=== PATIENT | female | born 1930 | race Caucasian/White ===

== ENCOUNTER 2017-01-06 22:27 | Inpatient (IN) | payer MEDICARE, BC ==
[~2017-01-06] VITALS: Ht 157.5 cm; Wt 76.3 kg
[~2017-01-06 22:27] MED LIST: ASPIR 8181 M1 PO; ATORVASTATIN CA10 M1 PO; CALCIUM 600 +1 EA15 PO; CHROMIUM PICO200 MC1 PO; CO Q-10100 M2 PO; FISH OIL 11000 MG/CA PO; FLAXSEED; GEMFIBROZIL600 M2 PO; GLUCOPHAGE850 M1 PO; GLUCOSAMINE CH PO; LOSARTAN POTAS100 M1 PO; MAGNESIUM250 M2 PO; METOPROLOL SUCC25 M1 PO; OSTEO BI-FLEX1 EAC5 PO; SUPER B COMPLE150 M1; TOPROL XL100 M1 PO; TYLENOL325 M2 PO; VITAMIN B-6100 M1 PO; VITAMIN D-32000 UNI4 PO
[2017-01-06 22:54] LABS: BASO % 0.4 % (0-2); CARBON DIOXIDE-VENOUS 29 mmol/L (21-33); CREATININE 1.16 mg/dl (0.50-1.10); EOS % 2.2 % (0-7); EOSINOPHIL ABSOLUTE COUNT 0.2 tho/cmm (0.0-0.7); GLUCOSE 203 mg/dl (65-120); HCT-HEMATOCRIT 41.1 % (34.0-49.0); HGB-HEMOGLOBIN 13.7 gm/dl (12.0-15.5); IMMATURE GRANULOCYTES ABSOLUTE 0.03 tho/cmm (0-0.03); IMMATURE GRANULOCYTES PERCENT 0.3 % (0-0.3); LYMPH % 17.6 % (20-45); LYMPH ABSOLUTE COUNT 1.6 tho/cmm (0.8-4.5); MCH (MEAN CORPUSCULAR HGB) 30.4 pg (28.0-32.0); MCHC MEAN CORPUSCULAR HGB CONC 33.3 % (32.0-36.0); MCV (MEAN CELL VOLUME) 91.1 fl (82.0-96.0); MEAN PLATELET VOLUME 10.3 cmc (9.4-12.4); MONO % 6.9 % (0-12); MONOCYTE ABSOLUTE COUNT 0.6 tho/cmm (0.0-1.2); NEUTROPHIL ABSOLUTE COUNT 6.6 tho/cmm (1.6-8.0); NEUTROPHIL-AUTOMATED 6.6 tho/cmm (1.6-8.0); NEUTROPHILS % 72.6 % (40-80); PLATELET COUNT 164 tho/cmm (150-450); POTASSIUM 4.3 mmol/L (3.7-5.1); RED BLOOD COUNT 4.51 mil/cmm (4.00-5.20); RED CELL DISTRIBUTION WIDTH 14.1 % (12.4-16.4); SODIUM 141 mmol/L (135-146); eGFR VALUE FOR BLACK 50 mL/Min
[2017-01-06 23:01] LABS: PROTHROMBIN TIME 11.3 SECONDS (9.0-13.6)
[2017-01-06 23:14] LABS: ALBUMIN 3.7 g/dl (3.5-5.0); ALKALINE PHOSPHATASE 72 U/L (33-138); ALT/SGPT 22 U/L (12-78); AST/SGOT 14 U/L (10-40); BILIRUBIN,TOTAL 0.4 mg/dl (0-1.5); BLOOD UREA NITROGEN 17 mg/dl (6-24); CALCIUM 9.6 mg/dl (8.5-10.5); CHLORIDE 104 mmol/l (96-110)
[2017-01-06 23:15] LABS: ANION GAP 10 mmol/L (0-20)
[2017-01-06 23:16] LABS: ESR-ERYTHROCYTE SED RATE 9 mm/hr (0-30)
[2017-01-07 01:38] LABS: URINE BILIRUBIN NEGATIVE (NEG); URINE BLOOD NEGATIVE (NEG); URINE GLUCOSE (UA) NEGATIVE (NEG); URINE KETONE NEGATIVE (NEG); URINE LEUKOCYTE ESTERASE POSITIVE (NEG); URINE NITRITE POSITIVE (NEG); URINE PROTEIN MODERATE (NEG); URINE SPECIFIC GRAVITY 1.015 (1.003-1.030)
[2017-01-07 01:39] LABS: URINE APPEARANCE HAZY; URINE COLOR YELLOW
[2017-01-07 01:45] LABS: URINE BACTERIA 4+; URINE EPITHELIAL CELLS 0-1 /[HPF] (0-10); URINE RBC 0 /[HPF] (0-5)
[2017-01-07 05:51] LABS: BASO % 0.5 % (0-2); EOS % 1.8 % (0-7); EOSINOPHIL ABSOLUTE COUNT 0.2 tho/cmm (0.0-0.7); HCT-HEMATOCRIT 37.4 % (34.0-49.0); HGB-HEMOGLOBIN 12.2 gm/dl (12.0-15.5); IMMATURE GRANULOCYTES ABSOLUTE 0.03 tho/cmm (0-0.03); IMMATURE GRANULOCYTES PERCENT 0.4 % (0-0.3); LYMPH % 17.4 % (20-45); LYMPH ABSOLUTE COUNT 1.5 tho/cmm (0.8-4.5); MCH (MEAN CORPUSCULAR HGB) 29.6 pg (28.0-32.0); MCHC MEAN CORPUSCULAR HGB CONC 32.6 % (32.0-36.0); MCV (MEAN CELL VOLUME) 90.8 fl (82.0-96.0); MEAN PLATELET VOLUME 10.1 cmc (9.4-12.4); MONO % 6.5 % (0-12); MONOCYTE ABSOLUTE COUNT 0.5 tho/cmm (0.0-1.2); NEUTROPHIL ABSOLUTE COUNT 6.1 tho/cmm (1.6-8.0); NEUTROPHIL-AUTOMATED 6.1 tho/cmm (1.6-8.0); NEUTROPHILS % 73.4 % (40-80); PLATELET COUNT 136 tho/cmm (150-450); RED BLOOD COUNT 4.12 mil/cmm (4.00-5.20); RED CELL DISTRIBUTION WIDTH 14.1 % (12.4-16.4); WHITE BLOOD COUNT 8.3 tho/cmm (4.0-10.0)
[2017-01-07 06:03] LABS: ALB/GLOB RATIO 1.1 (0.8-2.0); ALBUMIN 3.2 g/dl (3.5-5.0); ALKALINE PHOSPHATASE 57 U/L (33-138); ALT/SGPT 22 U/L (12-78); ANION GAP 13 mmol/L (0-20); AST/SGOT 15 U/L (10-40); BILIRUBIN,TOTAL 0.5 mg/dl (0-1.5); BLOOD UREA NITROGEN 15 mg/dl (6-24); CALCIUM 9.6 mg/dl (8.5-10.5); CARBON DIOXIDE-VENOUS 30 mmol/L (22-32); CHLORIDE 106 mmol/l (96-110); CHOLESTEROL 154 mg/dl (120-200); CREATININE 1.13 mg/dl (0.50-1.10); GLUCOSE 136 mg/dL (70-110); HDL CHOLESTEROL 53 mg/dl (40-60); LDL CHOLESTEROL 74 mg/dl (0-99); MAGNESIUM 1.9 mg/dl (1.8-2.6); PHOSPHOROUS 3.9 mg/dl (2.5-4.9); POTASSIUM 4.5 mmol/L (3.7-5.1); SODIUM 144 mmol/L (135-145); TRIGLYCERIDES 136 mg/dl (<149); VLDL 27 mg/dl (0-30); eGFR VALUE FOR BLACK 52 mL/Min
[2017-01-08 06:05] LABS: BASO % 0.2 % (0-2); EOS % 1.8 % (0-7); EOSINOPHIL ABSOLUTE COUNT 0.2 tho/cmm (0.0-0.7); HCT-HEMATOCRIT 38.3 % (34.0-49.0); HGB-HEMOGLOBIN 12.6 gm/dl (12.0-15.5); IMMATURE GRANULOCYTES ABSOLUTE 0.03 tho/cmm (0-0.03); IMMATURE GRANULOCYTES PERCENT 0.4 % (0-0.3); LYMPH % 19.1 % (20-45); LYMPH ABSOLUTE COUNT 1.6 tho/cmm (0.8-4.5); MCH (MEAN CORPUSCULAR HGB) 29.8 pg (28.0-32.0); MCHC MEAN CORPUSCULAR HGB CONC 32.9 % (32.0-36.0); MCV (MEAN CELL VOLUME) 90.5 fl (82.0-96.0); MEAN PLATELET VOLUME 10.2 cmc (9.4-12.4); MONO % 8.2 % (0-12); MONOCYTE ABSOLUTE COUNT 0.7 tho/cmm (0.0-1.2); NEUTROPHIL ABSOLUTE COUNT 5.9 tho/cmm (1.6-8.0); NEUTROPHIL-AUTOMATED 5.9 tho/cmm (1.6-8.0); NEUTROPHILS % 70.3 % (40-80); PLATELET COUNT 143 tho/cmm (150-450); RED BLOOD COUNT 4.23 mil/cmm (4.00-5.20); WHITE BLOOD COUNT 8.4 tho/cmm (4.0-10.0)
[2017-01-08 06:14] LABS: ANION GAP 8 mmol/L (0-20); BLOOD UREA NITROGEN 11 mg/dl (6-24); CALCIUM 8.3 mg/dl (8.5-10.5); CARBON DIOXIDE-VENOUS 30 mmol/L (22-32); CHLORIDE 104 mmol/l (96-110); CREATININE 1.23 mg/dl (0.50-1.10); GLUCOSE 144 mg/dL (70-110); SODIUM 138 mmol/L (135-145); eGFR VALUE FOR BLACK 47 mL/Min
[2017-01-08 06:17] LABS: POTASSIUM 4.1 mmol/L (3.7-5.1)
[2017-01-10 04:10] LABS: ANION GAP 9 mmol/L (0-20); BLOOD UREA NITROGEN 16 mg/dl (6-24); CALCIUM 8.8 mg/dl (8.5-10.5); CARBON DIOXIDE-VENOUS 29 mmol/L (22-32); CHLORIDE 102 mmol/l (96-110); CREATININE 1.05 mg/dl (0.50-1.10); GLUCOSE 155 mg/dL (70-110); SODIUM 136 mmol/L (135-145); eGFR VALUE FOR BLACK 56 mL/Min
[2017-01-10 04:11] LABS: POTASSIUM 4.1 mmol/L (3.7-5.1)
[2017-01-11] MEDS ORDERED: NORVASC10 M2 PO (10:32)
[2017-01-11] MEDS ORDERED: ASPIRIN EC81 MG PO (10:33)
[2017-01-11] MEDS ORDERED: TYLENOL325 M2 PO (10:33)
[2017-01-11] MEDS ORDERED: COLACE100 M1 PO (10:34)
[2017-01-11] MEDS ORDERED: NOVOLOG100 UNITS/ (10:36)
== END 2017-01-11 14:15 | DRG 65 ==
LOC: EDMED 22:27 → 5EB 01-07 01:51 → EMR2 01-07 01:51 → 5EB 01-07 02:23
PROVIDERS: Emergency Medicine; Family Medicine; Internal Medicine; ADMIT Internal Medicine
PROC: 5A09357 Assistance with Respiratory Ventilation, Less than 24 Consecutive Hours, Continuous Positive Airway Pressure (ICD-10-PCS; principal; 2017-01-07)
DX: I63.9 Cerebral infarction, unspecified (principal); N39.0 Urinary tract infection, site not specified; E11.22 Type 2 diabetes mellitus with diabetic chronic kidney disease; E11.42 Type 2 diabetes mellitus with diabetic polyneuropathy; G81.94 Hemiplegia, unspecified affecting left nondominant side; G47.33 Obstructive sleep apnea (adult) (pediatric); E78.5 Hyperlipidemia, unspecified; R29.810 Facial weakness; R47.81 Slurred speech; Z79.02 Long term (current) use of antithrombotics/antiplatelets; R13.10 Dysphagia, unspecified; M19.90 Unspecified osteoarthritis, unspecified site; Z79.82 Long term (current) use of aspirin; Z79.84 Long term (current) use of oral hypoglycemic drugs; R26.0 Ataxic gait; G20 Parkinson's disease; B96.20 Unspecified Escherichia coli [E. coli] as the cause of diseases classified elsewhere; I12.9 Hypertensive chronic kidney disease with stage 1 through stage 4 chronic kidney disease, or unspecified chronic kidney disease; N18.9 Chronic kidney disease, unspecified
CPT/HCPCS: A9577; C8929; G8996-GN-CJ; G8997-GN-CI; G8999-GN-CI; G9158-GN-CI; G9186-GN-CI; J1815; J2405; J2543; J7030